=== PATIENT | female | born 1970 | race Caucasian/White ===

== ENCOUNTER 2018-01-06 23:42 | Emergency (ER) | payer SELFPAY ==
[~2018-01-06] VITALS: Ht 185.4 cm; Wt 99.8 kg
[2018-01-07 01:24] VITALS: BP 142/87
--- NOTE | 2018-01-07 01:24 | Diagnostic Imaging Report ---
FOREARM RIGHT 2 VIEW, ELBOW RIGHT COMPLETE, WRIST COMPLETE RIGHT Comparison: None Clinical history: Status post fall on elbow, pain on elbow shoots to wrist Findings: Right wrist, forearm, elbow: Subtle oblique lucency of the radial styloid only seen on one view. Otherwise no acute fracture or dislocation. No elbow joint effusion. Impression: Subtle lucency of the radial styloid, favored to be artifactual although subtle nondisplaced fracture could have a similar appearance; correlate with point tenderness. Otherwise no acute bony abnormality. Signed by: Dr Cherelle Cannon MD on 01/07/2018 1:21 AM
== END 2018-01-07 01:45 | disposition home or self-care (01) ==
LOC: ER 23:42
DX: S50.01XA Contusion of right elbow, initial encounter (principal); S50.811A Abrasion of right forearm, initial encounter; W01.0XXA Fall on same level from slipping, tripping and stumbling without subsequent striking against object, initial encounter; Y99.0 Civilian activity done for income or pay; M54.9 Dorsalgia, unspecified; G89.29 Other chronic pain
CPT/HCPCS: 99283